=== PATIENT | male | born 1985 | race American Indian/Alaskan Native ===

== ENCOUNTER 2022-04-18 11:40 | Emergency (ER) | payer MEDICAID ==
[2022-04-18 12:40] LABS: ANION GAP 12.4 mEq/L (7-13)
== END 2022-04-18 14:21 | disposition home or self-care (01) ==
LOC: DL.ED 11:40
DX: M25.461 Effusion, right knee (principal); F15.10 Other stimulant abuse, uncomplicated; F10.920 Alcohol use, unspecified with intoxication, uncomplicated; R60.0 Localized edema
CPT/HCPCS: 36415; 71045; 80053; 83880; 85025; 99283; 99284

== ENCOUNTER 2022-07-25 07:36 | Emergency (ER) | payer MEDICAID ==
[2022-07-25] MEDS ORDERED: Bacitracin Oint 1 GM U/D Packet TOP ONE (07:52)
[2022-07-25] MEDS ORDERED: Diphtheria,Pertussis(Acell),Tetanus Vaccine 0.5 ML Syringe IM ONE (07:52)
[2022-07-25] MEDS ORDERED: Ketorolac 30 MG/ML SDV IM ONE (07:52)
[2022-07-25] MEDS ORDERED: Lidocaine 1% with EPINEPHrine 1:100,000 20 ML MDV INJECT ONE (08:46)
== END 2022-07-25 09:26 | disposition home or self-care (01) ==
LOC: DL.ED 07:36
DX: S01.01XA Laceration without foreign body of scalp, initial encounter (principal); S00.83XA Contusion of other part of head, initial encounter; S80.211A Abrasion, right knee, initial encounter; S80.212A Abrasion, left knee, initial encounter; Z23 Encounter for immunization; Y04.0XXA Assault by unarmed brawl or fight, initial encounter; Y93.01 Activity, walking, marching and hiking
CPT/HCPCS: 12001; 36415; 70450; 70486; 72125; 80307; 90471; 90715; 96372; 99283; 99285-25; A9270-GY; J1885; J3490

== ENCOUNTER 2025-01-09 16:16 | Emergency (ER) | payer MEDICAID ==
[2025-01-09] MEDS ORDERED: Sodium Chloride 0.9% 10 ML Syringe FLUSH PRN (16:22)
[2025-01-09 16:44] LABS: BASOPHILS PERCENT AUTO 0.1 % (0.0-1.0); EOSINOPHILS PERCENT AUTO 0.0 % (1.0-3.0); LYMPHOCYTES PERCENT AUTO 4.2 % (20.5-50.1); MONOCYTES PERCENT AUTO 7.8 % (2-8); NEUTROPHILS PERCENT AUTO 87.9 % (42.2-75.2); PLATELET COUNT,PLT 343 10^3/uL (150-450); RED BLOOD CELL COUNT 3.17 10^6/uL (4.6-6.2); WHITE BLOOD CELL COUNT,WBC 19.9 10^3/uL (5.0-10.0)
[2025-01-09 16:50] LABS: AMPHETAMINES,URINE NEGATIVE (NEGATIVE); BARBITURATES,URINE NEGATIVE (NEGATIVE); MDMA (ECSTASY), URINE NEGATIVE (NEGATIVE); METHAMPHETAMINES,URINE POSITIVE (NEGATIVE); OPIATES,URINE NEGATIVE (NEGATIVE); OXYCODONE,URINE NEGATIVE (NEGATIVE); PHENCYCLIDINE,URINE NEGATIVE (NEGATIVE); TCA,URINE NEGATIVE (NEGATIVE)
[2025-01-09] MEDS: MVI, Adult with Vitamin K 10 ML, Folic Acid 1 MG, Thiamine 100 MG in Lactated Ringers 1... IV ONE (17:00)
[2025-01-09 17:10] LABS: ALANINE AMINOTRANSFERASE,ALT 15 U/L (16-63); ASPARTATE AMNIOTRANSFERASE,AST 270 U/L (15-37); BILIRUBIN TOTAL 14.4 mg/dL (0.2-1.0); BLOOD UREA NITROGEN,BUN 8 mg/dL (7-18); CARBON DIOXIDE,CO2 18 mmol/L (21-32); CHLORIDE,CL 89 mmol/L (98-107); CREATININE 1.28 mg/dL (0.70-1.30); ETHANOL BLOOD MEDICAL 52 mg/dL (0); GLUCOSE RANDOM 147 mg/dL (70-99); PROTEIN TOTAL,TP 9.4 g/dL (6.4-8.2); SODIUM,NA 130 mmol/L (136-145)
[2025-01-09 17:12] LABS: INR 1.3 (0.9-1.2); PTT,PARTIAL THROMBOPLSTIN TIME 33.4 SEC (22.0-34.0)
[2025-01-09] MEDS: Lactulose Soln 10 GM/15 ML 30 ML UD Cup PO ONE (17:19)
[2025-01-09 17:28] LABS: A/G RATIO 0.32; ESTIMATED GFR 73 mL/min (>=60); LACTIC ACID 6.0 mmol/L (0.4-2.0); POTASSIUM,K 2.4 mmol/L (3.5-5.1)
[2025-01-09] MEDS: Iopamidol 612 MG/ML 100 ML Bottle IVPUSH ONE (17:34)
[2025-01-09] MEDS: LORazepam 2 MG/ML SDV IVPUSH ONE (17:36)
[2025-01-09] MEDS: NS with KCl 40mEq 1,000 ML IV SCH (18:03)
[2025-01-09] MEDS: Magnesium Sulfate 2 GM/50 mL 2 GM in Premix Bag 1 BAG IV ONE (18:04)
[2025-01-09] MEDS: PHENobarbitaL sodium 260 MG in Sodium Chloride 0.9% 100 ML IV ONE (19:53)
== END 2025-01-09 20:42 ==
LOC: DL.ED 16:16
DX: A41.9 Sepsis, unspecified organism (principal); R65.20 Severe sepsis without septic shock; K76.82 Hepatic encephalopathy; K72.00 Acute and subacute hepatic failure without coma; F10.939 Alcohol use, unspecified with withdrawal, unspecified; F15.10 Other stimulant abuse, uncomplicated; E87.1 Hypo-osmolality and hyponatremia; E83.42 Hypomagnesemia; E87.6 Hypokalemia
CPT/HCPCS: 36415; 70450; 71045; 74177; 80053; 80305; 80307; 82140; 82947; 83605; 83690; 83735; 84145; 84484; 85025; 85610; 85730; 86140; 87040; 93005; 96365; 96366; 96367; 96368; 96375; 99285; A9270; J1808; J2060; J2543; J2560; J3411; J3475; J3480; J7030; J7120; Q9967; 93010; J3490

== ENCOUNTER 2025-01-16 10:26 | Inpatient (IN) | payer MEDICAID ==
[2025-01-16] MEDS ORDERED: Ondansetron 4 MG Tab.DIS PO PRN (17:14)
[2025-01-16 17:56] LABS: BASOPHILS PERCENT AUTO 0.0 % (0.0-1.0); EOSINOPHILS PERCENT AUTO 0.0 % (1.0-3.0); LYMPHOCYTES PERCENT AUTO 2.2 % (20.5-50.1); MONOCYTES PERCENT AUTO 1.3 % (2-8); NEUTROPHILS PERCENT AUTO 96.5 % (42.2-75.2); PLATELET COUNT,PLT 321 10^3/uL (150-450); RED BLOOD CELL COUNT 2.74 10^6/uL (4.6-6.2); WHITE BLOOD CELL COUNT,WBC 22.8 10^3/uL (5.0-10.0)
[2025-01-16 18:16] LABS: ALANINE AMINOTRANSFERASE,ALT 58.0 U/L (16-63); ASPARTATE AMNIOTRANSFERASE,AST 184.0 U/L (15-37); BILIRUBIN TOTAL 9.2 mg/dL (0.2-1.0); BLOOD UREA NITROGEN,BUN 5.0 mg/dL (7-18); CARBON DIOXIDE,CO2 21.0 mmol/L (21-32); CHLORIDE,CL 105.0 mmol/L (98-107); CREATININE 0.98 mg/dL (0.70-1.30); EST CRCL DRUG DOSING (CG) 96.62 mL/min; GLUCOSE RANDOM 140.0 mg/dL (70-99); POTASSIUM,K 4.1 mmol/L (3.5-5.1); PROTEIN TOTAL,TP 7.1 g/dL (6.4-8.2); SODIUM,NA 138.0 mmol/L (136-145)
[2025-01-16 18:18] LABS: A/G RATIO 0.37; ESTIMATED GFR 100.0 mL/min (>=60)
[2025-01-16 18:27] LABS: INR 1.2 (0.9-1.2); PTT,PARTIAL THROMBOPLSTIN TIME 26.8 SEC (22.0-34.0)
[2025-01-16 18:59] LABS: CORONAVIRUS COVID-19 NAA NEGATIVE (NEGATIVE); INFLUENZA A NAA NEGATIVE (NEGATIVE); INFLUENZA B NAA NEGATIVE (NEGATIVE)
[2025-01-16 19:03] LABS: FOLIC ACID 8.5 ng/mL (8.6-58.9); T4 FREE 2.23 ng/dL (0.76-1.46); TSH ULTRASENSITIVE 0.79 uIU/mL (0.36-3.74)
[2025-01-16 19:07] LABS: IRON,FE 19.0 ug/dL (65-175); PERCENT FE SATURATION 20.9 % (20.0-50.0)
[2025-01-16] MEDS: Amoxicillin/Clavulanate K 875-125 MG Tab PO SCH (21:04)
[2025-01-16] MEDS: Lactulose Soln 10 GM/15 ML 30 ML UD Cup PO SCH (21:07)
[2025-01-17 06:41] LABS: BASOPHILS PERCENT AUTO 0.0 % (0.0-1.0); EOSINOPHILS PERCENT AUTO 0.1 % (1.0-3.0); LYMPHOCYTES PERCENT AUTO 7.2 % (20.5-50.1); MONOCYTES PERCENT AUTO 6.8 % (2-8); NEUTROPHILS PERCENT AUTO 85.9 % (42.2-75.2); PLATELET COUNT,PLT 261 10^3/uL (150-450); RED BLOOD CELL COUNT 2.48 10^6/uL (4.6-6.2); WHITE BLOOD CELL COUNT,WBC 21.2 10^3/uL (5.0-10.0)
[2025-01-17 20:56] LABS: APPEARANCE,URINE CLEAR (CLEAR); GLUCOSE,URINE NEGATIVE (NEGATIVE); OCCULT BLOOD,URINE NEGATIVE (NEGATIVE)
[2025-01-17 21:10] LABS: EPITHELIAL CELLS,URINE RARE /HPF (NOT SEEN)
[2025-01-18 06:55] LABS: BASOPHILS PERCENT AUTO 0.1 % (0.0-1.0); EOSINOPHILS PERCENT AUTO 1.1 % (1.0-3.0); LYMPHOCYTES PERCENT AUTO 9.3 % (20.5-50.1); MONOCYTES PERCENT AUTO 6.4 % (2-8); NEUTROPHILS PERCENT AUTO 83.1 % (42.2-75.2); PLATELET COUNT,PLT 265 10^3/uL (150-450); RED BLOOD CELL COUNT 2.28 10^6/uL (4.6-6.2); WHITE BLOOD CELL COUNT,WBC 19.0 10^3/uL (5.0-10.0)
[2025-01-19 10:38] LABS: BASOPHILS PERCENT AUTO 0.0 % (0.0-1.0); EOSINOPHILS PERCENT AUTO 0.8 % (1.0-3.0); LYMPHOCYTES PERCENT AUTO 8.0 % (20.5-50.1); MONOCYTES PERCENT AUTO 5.6 % (2-8); NEUTROPHILS PERCENT AUTO 85.6 % (42.2-75.2); PLATELET COUNT,PLT 282 10^3/uL (150-450); RED BLOOD CELL COUNT 2.28 10^6/uL (4.6-6.2); WHITE BLOOD CELL COUNT,WBC 21.1 10^3/uL (5.0-10.0)
[2025-01-19] MEDS: Take Home: Levofloxacin 500 MG Tab, 3 Tab Pack PO ONE (16:35)
== END 2025-01-19 17:00 | disposition home or self-care (01) | DRG 947 ==
LOC: DL.MS 16:16
PROVIDERS: ADMIT Student in an Organized Health Care Education/Training Program; ATTEND Student in an Organized Health Care Education/Training Program
DX: R53.81 Other malaise (principal); J18.9 Pneumonia, unspecified organism; E72.20 Disorder of urea cycle metabolism, unspecified; K70.9 Alcoholic liver disease, unspecified; E80.6 Other disorders of bilirubin metabolism; D72.829 Elevated white blood cell count, unspecified; D53.9 Nutritional anemia, unspecified; R79.89 Other specified abnormal findings of blood chemistry; F10.90 Alcohol use, unspecified, uncomplicated; F17.200 Nicotine dependence, unspecified, uncomplicated; Z79.899 Other long term (current) drug therapy
CPT/HCPCS: 36415; 80053; 81001; 82140; 82272; 82607; 82728; 82746; 83540; 83550; 83735; 84439; 84443; 85025; 85610; 85730; 87040; 87636; 97161-GP; 99306; 99315; A9270-GY; J1650